=== PATIENT | male | born 1960 | race Caucasian/White ===

== ENCOUNTER 2023-01-25 13:41 | Emergency (ER) | payer MEDICARE ==
--- NOTE | 2023-01-25 14:12 | ED ---
General Adult HPI - General Source: patient, RN notes reviewed Mode of arrival: ambulatory Limitations: no limitations <Neil Lanza - Last Filed: 01/25/23 14:11> <Anna Hernandez - Last Filed: 01/25/23 18:32> - General Chief complaint: Extremity Problem,Nontraumatic Stated complaint: lower left leg pain Time Seen by Provider: 01/25/23 14:11 - History of Present Illness Initial comments: 62-year-old male presents emergency Department with chief complaint of left calf, leg pain and swelling. Patient states his started a few days ago he states she's concerned about possible blood clot is no history denies chest pain or shortness breath no trauma he did notice some swelling to his leg without redness (Neil Lanza) The patient is a 62-year-old gentleman with history of hypertension and is a smoker but otherwise healthy presents emergency room with complaints of pain and signs of. Patient noticed some mild pain over the medial aspect of the knee. He states it spread to the back of any and then into his calf. States that certain 60s gotten progressively worse. He has noticed swelling over the last few days as well. He denies any obvious warmth or redness. He denies any history of DVT or PEs. Patient denies any recent travel or recent surgery. He denies any chest pain, shortness breath or hemoptysis. (Anna Hernandez) - Related Data Previous Rx's Medication Instructions Recorded Apixaban [Eliquis Starter Pack 5 - 10 mg PO DIRECTED 30 Days 01/25/23 (for VTE)] #1 each Allergies Allergy/AdvReac Type Severity Reaction Status Date / Time No Known Allergies Allergy Verified 01/25/23 14:10 Review of Systems ROS Other: All systems not noted in ROS Statement are negative. <Neil Lanza - Last Filed: 01/25/23 14:11> ROS Other: All systems not noted in ROS Statement are negative. <Anna Hernandez - Last Filed: 01/25/23 18:32> ROS Statement: Those systems with pertinent positive or pertinent negative responses have been documented in the HPI. Past Medical History Past Medical History: Hypertension History of Any Multi-Drug Resistant Organisms: None Reported Past Surgical History: Orthopedic Surgery Additional Past Surgical History / Comment(s): right ACL knee surgery Past Psychological History: Bipolar Smoking Status: Current every day smoker Past Alcohol Use History: Daily Past Drug Use History: None Reported <Neil Lanza - Last Filed: 01/25/23 14:11> General Exam Limitations: no limitations <Neil Lanza - Last Filed: 01/25/23 14:11> Limitations: no limitations General appearance: alert, in no apparent distress Head exam: Present: atraumatic Eye exam: Present: normal appearance, PERRL, EOMI. Absent: scleral icterus, conjunctival injection, periorbital swelling ENT exam: Present: normal exam Respiratory exam: Present: normal lung sounds bilaterally Cardiovascular Exam: Present: regular rate Extremities exam: Present: full ROM, calf tenderness ([place] palpation over the left calf, mild swelling noticed. There is warmth with palpation. No obvious erythema. Compartments are soft with no signs of a compartment syndrome or septic joint. Normal range of motion of the knee joint.) Back exam: Present: full ROM Neurological exam: Present: alert, oriented X3, CN II-XII intact Psychiatric exam: Present: normal affect, normal mood Skin exam: Present: warm <Anna Hernandez - Last Filed: 01/25/23 18:32> - General Exam Comments Initial Comments: Visual Physical Exam Vital signs reviewed General: Well-appearing, nontoxic, no acute distress. Head: Normocephalic, atraumatic Eyes: PERRLA, EOMI ENT: Airway patent Chest: Nonlabored breathing Skin: No visual rash, normal skin tone Neuro: Alert and oriented 3 Musculoskeletal: No gross abnormalities (Neil Lanza) Course <Anna Hernandez - Last Filed: 01/25/23 18:32> Vital Signs 01/25/23 14:07 Temperature 98 F Pulse Rate 104 H Respiratory 16 Rate Blood Pressure 146/76 O2 Sat by Pulse 97 Oximetry - Reevaluation(s) Reevaluation #1: 01/25/23 18:26 Patient's well appearing in the emergency room. He did receive IV fluids after his blood work showed some renal insufficiency. Other labs are unremarkable. Patient will be started on Eliquis started pack per recommendation of . Discussed treatment plan with the Eliquis starter pack. Discussed going up with the PCP and discussed signs return to emergency room including but not limited to any chest pain, shortness breath, hemoptysis or new concerning symptoms. Patient understands agrees to this plan. 01/25/23 18:29 (Anna Hernandez) Medical Decision Making <Neil Lanza - Last Filed: 01/25/23 14:11> - Lab Data Result diagrams: 01/25/23 15:57 01/25/23 15:57 - Radiology Data Radiology results: report reviewed, image reviewed <Anna Hernandez - Last Filed: 01/25/23 18:32> - Medical Decision Making I performed a quick note portion of this chart signed Neil Lanza PA-C (Neil Lanza) Was pt. sent in by a medical professional or institution (, PA, TRAIN CONDUCTOR, urgent care, hospital, or [facility]...) When possible be specific @ -[No] Did you speak to anyone other than the patient for history (EMS, parent, family, police, friend...)? What history was obtained from this source @ -[No] Did you review nursing and triage notes (agree or disagree)? Why? @ -[I reviewed and agree with nursing and triage notes] Were old charts reviewed (outside hosp., previous admission, EMS record, old EKG, old radiological studies, urgent care reports/EKG's, [facility] records)? Report findings @ -[No old charts were reviewed] Differential Diagnosis (chest pain, altered mental status, abdominal pain women, abdominal pain men, vaginal bleeding, weakness, fever, dyspnea, syncope, headach e, dizziness, GI bleed, back pain, seizure, CVA, palpatations, mental health, musculoskeletal)? @ -Muscle strain, DVT, superficial thrombophlebitis, muscle spasm EKG interpreted by me (3pts min.). @ -[As above] X-rays interpreted by me (1pt min.). @ -[None done] CT interpreted by me (1pt min.). @ -[None done] U/S interpreted by me (1pt. min.). @ -Ultrasound shows a left DVT and the gastrocnemius area as well as a superficial thrombus phlebitis. What testing was considered but not performed or refused? (CT, X-rays, U/S, labs)? Why? @ -[None] What meds were considered but not given or refused? Why? @ -[None] Did you discuss the management of the patient with other professionals (professionals i.e. , PA, TRAIN CONDUCTOR, lab, RT, psych nurse, social service director, lozenge maker helper, teacher, traffic police officer, case operator)? Give summary @ -Discussed patient's symptoms are And management with attending physician Dr. Roth today. Was smoking cessation discussed for >3mins.? @ -[No] Was critical care preformed (if so, how long)? @ -[No] Were there social determinants of health that impacted care today? How? (Homelessness, low income, unemployed, alcoholism, drug addiction, transportation, low edu. Level, literacy, decrease access to med. care, snf, rehab)? @ -[No] Was there de-escalation of care discussed even if they declined (Discuss DNR or withdrawal of care, Hospice)? DNR status @ -[No] What co-morbidities impacted this encounter? (DM, HTN, Smoking, COPD, CAD, Cancer, CVA, ARF, Chemo, Hep., AIDS, mental health diagnosis, sleep apnea, morbid obesity)? @ -Hypertension Was patient admitted / discharged? Hospital course, mention meds given and route, prescriptions, significant lab abnormalities, going to OR and other pertinent info. @ -Patient's well appearing in the emergency room. Vital signs are stable. He received IV fluids emergency room for the renal insufficiency. He tolerated the Eliquis well. He is to continue the Eliquis as an outpatient with the Eliquis started pack. He is to follow-up with the PCP for reevaluation and further medical management including extending the Eliquis longer. I discussed signs return to the emergency room including but not limited to any chest pain, shortness breath, hemoptysis or new concerning symptoms. Patient is stable to follow up as an outpatient at this time and does not require hospitalization. Undiagnosed new problem with uncertain prognosis? @ -[No] Drug Therapy requiring intensive monitoring for toxicity (Heparin, Nitro, Insulin, Cardizem)? @ -[No] Were any procedures done? @ -[No] Diagnosis/symptom? @ -Left lower extremity DVT, renal insufficiency, left lower extremity superficial thrombophlebitis Acute, or Chronic, or Acute on Chronic? @ -Acute Uncomplicated (without systemic symptoms) or Complicated (systemic symptoms)? @ -Uncomplicated Side effects of treatment? @ -[No] Exacerbation, Progression, or Severe Exacerbation? @ -[No] Poses a threat to life or bodily function? How? (Chest pain, [place], CA, pneumonia, PE, COPD, DKA, ARF, appy, cholecystitis, CVA, Diverticulitis, Homicidal, [place] icidal, threat to staff... and all critical care pts) @ -[No] (Anna Hernandez) - Lab Data Lab Results 01/25/23 01/25/23 01/25/23 Range/Units 15:57 15:57 15:57 WBC 7.9 (3.8-10.6) k/uL RBC 4.21 L (4.30-5.90) m/uL Hgb 13.8 (13.0-17.5) gm/dL Hct 40.4 (39.0-53.0) % MCV 96.0 (80.0-100.0) fL MCH 32.8 (25.0-35.0) pg MCHC 34.1 (31.0-37.0) g/dL RDW 12.4 (11.5-15.5) % Plt Count 346 (150-450) k/uL MPV 7.9 Neutrophils % 67 % Lymphocytes % 26 % Monocytes % 5 % Eosinophils % 1 % Basophils % 0 % Neutrophils # 5.3 (1.3-7.7) k/uL Lymphocytes # 2.0 (1.0-4.8) k/uL Monocytes # 0.4 (0-1.0) k/uL Eosinophils # 0.1 (0-0.7) k/uL Basophils # 0.0 (0-0.2) k/uL PT 10.3 (10.0-12.5) sec INR 0.9 (<1.2) APTT 23.7 (22.0-30.0) sec Sodium 134 L (137-145) mmol/L Potassium 4.6 (3.5-5.1) mmol/L Chloride 101 (98-107) mmol/L Carbon Dioxide 24 (22-30) mmol/L Anion Gap 9 mmol/L BUN 20 (9-20) mg/dL Creatinine 1.38 H (0.66-1.25) mg/dL Est GFR (CKD-EPI)AfAm 62 (>60 ml/min/1.73 sqM) Est GFR (CKD-EPI)NonAf 54 (>60 ml/min/1.73 sqM) Glucose 109 H (74-99) mg/dL Calcium 9.4 (8.4-10.2) mg/dL Total Bilirubin 0.5 (0.2-1.3) mg/dL AST 26 (17-59) U/L ALT 31 (4-49) U/L Alkaline Phosphatase 60 (38-126) U/L Total Protein 7.5 (6.3-8.2) g/dL Albumin 4.0 (3.5-5.0) g/dL Disposition <Neil Lanza - Last Filed: 01/25/23 14:11> Is patient prescribed a controlled substance at d/c from ED?: No If prescribed controlled substance>3 days was MAPS reviewed?: No Time of Disposition: 18:21 <Anna Hernandez - Last Filed: 01/25/23 18:32> Clinical Impression: Deep vein thrombosis (DVT) of lower extremity, Superficial thrombophlebitis, Renal insufficiency Disposition: HOME SELF-CARE Condition: Good Instructions (If sedation given, give patient instructions): Apixaban (By mouth), Superficial Thrombophlebitis (ED), Deep Vein Thrombosis (ED), Deep Vein Thrombosis Prevention (ED) Prescriptions: Apixaban [Eliquis Starter Pack (for VTE)] 5 - 10 mg PO DIRECTED 30 Days #1 each Referrals: Jair Camarillo MD [Primary Care Provider] - 1-2 days
[2023-01-25 14:24] VITALS: RESP 16
--- NOTE | 2023-01-25 15:36 | US ---
EXAMINATION TYPE: US venous doppler duplex LE LT DATE OF EXAM: 01/25/2023 3:23 PM COMPARISON: NONE CLINICAL INDICATION: Male, 62 years old with history of pain, swelling left calf; Pain and swelling s adrienne Wednesday. No injury. SIDE PERFORMED: Left TECHNIQUE: The lower extremity deep venous system is examined utilizing real time linear array sonog jill with graded compression, doppler sonography and color-flow sonography. VESSELS IMAGED: Common Femoral Vein Deep Femoral Vein Greater Saphenous Vein * Femoral Vein Popliteal Vein Small Saphenous Vein * Proximal Calf Veins (* superficial vessels) Left Leg: Appears positive for DVT in paired deep veins posterior left knee- These could be the g astrocnemius veins. These veins do not appear to compress or show color flow anterior to the poplite al vein. *There also appears to be thrombus within the small saphenous vein at the junction with the popliteal vein. This vein does not appear to compress or show color flow. Color flow seen within CFV, GSV, DFV, Femoral vein, popliteal vein, and prox calf veins. IMPRESSION: 1. Positive deep venous thrombosis within the paired deep veins of the posterior left knee which cou ld represent of the gastrocnemius veins. 2. Additional superficial venous thrombosis within the small saphenous vein at the junction with the popliteal vein. Findings called to and discussed with ER at 3:31 PM on 01/25/2023.
[2023-01-25 16:16] LABS: Basophils % (A) 0 %; Eosinophils # (A) 0.1 k/uL (0-0.7); Eosinophils % (A) 1 %; HCT 40.4 % (39.0-53.0); HGB 13.8 gm/dL (13.0-17.5); Lymphocytes % (A) 26 %; MCH 32.8 pg (25.0-35.0); MCHC 34.1 g/dL (31.0-37.0); Mean Platelet Volume 7.9; Monocytes # (A) 0.4 k/uL (0-1.0); Monocytes % (A) 5 %; Neutrophils # (A) 5.3 k/uL (1.3-7.7); Neutrophils % (A) 67 %; Platelet Count 346 k/uL (150-450); RBC 4.21 m/uL (4.30-5.90); RDW 12.4 % (11.5-15.5); WBC 7.9 k/uL (3.8-10.6)
[2023-01-25 16:22] LABS: INR 0.9 (<1.2); Partial Thromboplastin Time 23.7 sec (22.0-30.0); Prothrombin Time 10.3 sec (10.0-12.5)
[2023-01-25 16:28] LABS: ALT 31 U/L (4-49); AST 26 U/L (17-59); African American GFR (CKD) 62 (>60 ml/min/1.73 sqM); Alkaline Phosphatase 60 U/L (38-126); Anion Gap 9 mmol/L; Blood Urea Nitrogen 20 mg/dL (9-20); Calcium 9.4 mg/dL (8.4-10.2); Carbon Dioxide 24 mmol/L (22-30); Chloride 101 mmol/L (98-107); Glucose 109 mg/dL (74-99); Non-African American GFR(CKD) 54 (>60 ml/min/1.73 sqM); Potassium 4.6 mmol/L (3.5-5.1); Sodium 134 mmol/L (137-145); Total Bilirubin 0.5 mg/dL (0.2-1.3); Total Protein 7.5 g/dL (6.3-8.2)
[2023-01-25] MEDS ORDERED: APIXABAN 2.5 MG TABLET PO STA ×2 (16:45→18:27)
[2023-01-25] MEDS ORDERED: SODIUM CHLORIDE 0.9% 500 ML 500 ML IV STA (16:45)
[2023-01-25 18:44] VITALS: BP 137/70; PULSE 77; TEMP 98.4
== END 2023-01-25 18:42 | disposition home or self-care (01) ==
LOC: EC 13:41
DX: I82.402 Acute embolism and thrombosis of unspecified deep veins of left lower extremity (principal); N28.9 Disorder of kidney and ureter, unspecified; I10 Essential (primary) hypertension; F17.200 Nicotine dependence, unspecified, uncomplicated; Z86.59 Personal history of other mental and behavioral disorders
CPT/HCPCS: 36415; 80053; 85025; 85610; 85730; 99284

== ENCOUNTER → 2023-02-25 | Outpatient (CLI) | payer MEDICARE ==
--- NOTE | 2023-02-25 13:01 | CTL ---
EXAMINATION TYPE: CT Low Dose Lung DATE OF EXAM ORDERED: 02/25/2023 HISTORY: . Lung cancer screening CT DLP: [address] CTDI: 2.29 mGy Automated exposure control for dose reduction was used. SCREENING VISIT: COMPARISON: TECHNIQUE: Low dose computed tomography scan was performed through the chest at 1 mm thick sections a nd reconstructed images in multiple planes at 1 mm and [address] DIAGNOSTIC QUALITY: Satisfactory FINDINGS: LUNG NODULES: None. LUNGS: COPD: Severity: None Fibrosis: Severity: None Lymph nodes: No abnormal lymph nodes. Other findings: RIGHT PLEURAL SPACE: Effusion: None Calcification: None Thickening: None Pneumothorax: None LEFT PLEURAL SPACE: Effusion: None Calcification: None Thickening: None Pneumothorax: None HEART: Heart Size: Normal Coronary Calcification: Mild coronary calcification is seen within the left anterior descending. Pericardial Effusion: None OTHER FINDINGS: Upper abdomen: None Bony thorax: None Supraclavicular region: None Other: None IMPRESSION: CT LUNG RAD AND CT CHEST RECOMMENDATION: Lung-Rad 1 Negative: Continue annual screening with LDCT in 12 months.
== END | disposition home or self-care (01) ==
LOC: RADCTMAIN 12:21
PROVIDERS: ATTEND Internal Medicine
DX: Z12.2 Encounter for screening for malignant neoplasm of respiratory organs (principal); F17.210 Nicotine dependence, cigarettes, uncomplicated
CPT/HCPCS: 71271

== ENCOUNTER → 2023-03-09 | Outpatient (CLI) | payer MEDICARE ==
--- NOTE | 2023-03-09 12:33 | XR ---
EXAMINATION TYPE: XR Hip Complete RT DATE OF EXAM: 03/09/2023 COMPARISON: None HISTORY: Pain TECHNIQUE: 2 view right hip FINDINGS: Femoral head articulates with the acetabulum. There is loss of the joint space and superior portion of the compartment. Mild acetabular spurring is present. No acute fractures are evident. IMPRESSION: 1. Moderate osteoarthritic degenerative changes right hip
== END | disposition home or self-care (01) ==
LOC: RADXRMAIN 06:46
PROVIDERS: ATTEND Internal Medicine
DX: M16.11 Unilateral primary osteoarthritis, right hip (principal)
CPT/HCPCS: 73502

== ENCOUNTER → 2024-04-26 | Outpatient (CLI) | payer MEDICARE ==
--- NOTE | 2024-04-26 15:27 | XR ---
EXAMINATION TYPE: XR Hip Bilateral 2 views Complete DATE OF EXAM: 04/26/2024 COMPARISON: NONE CLINICAL INDICATION: Male, 63 years old with history of M25.551 PAIN IN RIGHT HIP; TECHNIQUE: 2 views each side FINDINGS: There is bilateral degenerative spurring of the hips. Relative preservation of hip joint sp koko on the left. However, there is redemonstrated severe loss of superolateral weightbearing joint sp koko on the right with [id number] abutment, subchondral sclerosis, and some progression from 023. No acute fracture, subluxation, dislocation. IMPRESSION: Bilateral hip OA, severe and progressed on the right. Mild on the left. [facility], Workstation: [email or web address], 04/26/2024 3:25 PM
== END | disposition home or self-care (01) ==
LOC: RADXRMAIN 12:33
PROVIDERS: ATTEND Family Medicine
DX: M16.0 Bilateral primary osteoarthritis of hip (principal)
CPT/HCPCS: 73521

== ENCOUNTER → 2024-05-23 | Outpatient (CLI) | payer MEDICARE ==
--- NOTE | 2024-05-23 16:05 | CTL ---
EXAMINATION TYPE: CT Low Dose Lung DATE OF EXAM ORDERED: 05/23/2024 COMPARISON: 02/25/2023 CLINICAL INDICATION: Male, 64 years old with history of Z12.2 LUNG CA SCR Z87.891 FORMER SMOKER; H, FORMER TOBACCO USER, Lung cancer screening, History of Smoking/tobacco use. TECHNIQUE: Low dose computed tomography scan was performed through the chest at 1 mm thick sections a nd reconstructed images in multiple planes at 1 mm and [address] DLP: [address] CTDI: 3.5 mGy Automated exposure control for dose reduction was used. CT DIAGNOSTIC QUALITY: Satisfactory Findings: There are a few scattered stable micronodules. There is no lung consolidation or abnormal interstitial density. There is no pleural effusion or pneumothorax. The great vessels and heart are normal in size. There is no mediastinal, hilar or axillary adenopathy. Limited scanning through the upper abdomen reveals no gross abnormality. There are no focal osseous lesions. IMPRESSION: 1. Lung RADS category 2 benign. Continue routine screening at yearly intervals. 2. No acute cardiopu lmonary disease. [facility], , 05/23/2024 4:02 PM
[2024-05-24 02:51] LABS: Basophils # (A) 0.04 X 10*3/uL (0.00-0.10); Basophils % (A) 0.6 %; Eosinophils % (A) 1.4 %; HCT 38.6 % (39.6-50.0); HGB 12.7 g/dL (13.0-17.0); Lymphocytes # (A) 2.01 X 10*3/uL (0.90-5.00); Lymphocytes % (A) 28.4 %; MCH 32.2 pg (27.0-32.0); MCHC 32.9 g/dL (32.0-37.0); Mean Platelet Volume 11.5 FL (9.5-12.2); Monocytes # (A) 0.64 X 10*3/uL (0.20-1.00); Monocytes % (A) 9.1 %; NRBC Per 100 WBC 0 X 10*3/uL (0.00-0.01); Neutrophils # (A) 4.25 X 10*3/uL (1.80-7.70); Neutrophils % (A) 60.1 %; Platelet Count 340 X 10*3/uL (140-440); RBC 3.94 X 10*6/uL (4.40-5.60); RDW 12.3 % (11.5-14.5); WBC 7.07 X 10*3/uL (4.50-10.00)
[2024-05-24 03:35] LABS: ALT 69 U/L (10-49); AST 35 U/L (14-35); Albumin 4.2 g/dL (3.8-4.9); Albumin/Globulin Ratio 1.45 Ratio (1.60-3.17); Alkaline Phosphatase 78 U/L (41-126); BUN/Creat Ratio 14.43 Ratio (12.00-20.00); Blood Urea Nitrogen 20.2 mg/dL (9.0-27.0); Calcium 9.2 mg/dL (8.7-10.3); Carbon Dioxide 25.6 mmol/L (21.6-31.8); Chloride 102 mmol/L (96-109); Chol/HDL Ratio 5.69 Ratio; Globulin 2.9 g/dL (1.6-3.3); Glucose 119 mg/dL (70-110); LDL Cholesterol,Calculated 174.6 mg/dL (0.0-131.0); Potassium 4.8 mmol/L (3.5-5.5); Prostate Specific Antigen 1.52 ng/mL (0.000-4.500); Sodium 138 mmol/L (135-145); Total Bilirubin 0.2 mg/dL (0.3-1.2); Total Protein 7.1 g/dL (6.2-8.2); Uric Acid 7.7 mg/dL (3.7-8.7)
== END | disposition home or self-care (01) ==
LOC: RADCTMAIN 14:41
PROVIDERS: ATTEND Family Medicine
DX: Z12.2 Encounter for screening for malignant neoplasm of respiratory organs (principal); Z00.01 Encounter for general adult medical examination with abnormal findings; J44.9 Chronic obstructive pulmonary disease, unspecified; I12.9 Hypertensive chronic kidney disease with stage 1 through stage 4 chronic kidney disease, or unspecified chronic kidney disease; N18.31 Chronic kidney disease, stage 3a; D51.9 Vitamin B12 deficiency anemia, unspecified; Z87.891 Personal history of nicotine dependence
CPT/HCPCS: 71271; 80053; 80061; 82306; 82607; 84153; 84403; 84443; 84550; 85025